=== PATIENT | female | born 1995 | race Caucasian/White ===

== ENCOUNTER 2017-04-29 10:44 | Emergency (ER) | payer OTHER, MEDICAID ==
[2017-04-29 10:55] VITALS: BP 107/79
[2017-04-29] MEDS ORDERED: DEXAMETHASONE 10 MG/ML VIAL PO STA (11:10)
--- NOTE | 2017-04-29 11:15 | ED Physician Documentation ---
PD HPI UPPER EXT INJURY - Stated complaint Stated Complaint: RT SHOULDER PX - Chief complaint Chief Complaint: Ext Problem - History obtained from History obtained from: Patient, Family - History of Present Illness Location: Left, Shoulder Type of injury: Twist Where injury occurred: Home Timing - onset: Last night Timing - duration: Hours Timing - details: Abrupt onset, Still present Improved by: Rest, Immobilization Worsened by: Moving, Palpating Associated symptoms: No: Weakness, Numbness, Tingling, Swelling, Discolored Contributing factors: No: Anticoagulated Similar symptoms before: No diagnosis Recently seen: Not recently seen - Additonal information Additional information: 21-year-old female was on the commode and put her left arm behind her to wipe and she felt a pop in her shoulder and has severe pain when she is trying to maneuver the shoulder. She points to the anterior deltoid is a source of her pain.She has injured this shoulder one time previously and has had a problem every time she puts her arm behind her back. Review of Systems Respiratory: denies: Cough GI: denies: Vomiting Musculoskeletal: reports: Joint pain. denies: Neck pain, Back pain, Extremity swelling, Joint swelling Neurologic: denies: Generalized weakness, Focal weakness, Numbness PD PAST MEDICAL HISTORY - Past Medical History Cardiovascular: None Respiratory: Sleep apnea Neuro: Headache/migraine Endocrine/Autoimmune: None GI: None : Kidney stones HEENT: None Psych: Depression, Anxiety Musculoskeletal: Scoliosis Derm: None - Past Surgical History Past Surgical History: Yes - Present Medications Home Medications: Ambulatory Orders Medication Instructions Recorded Confirmed Amitriptyline HCl 25 mg PO DAILY 03/22/14 04/29/17 Fexofenadine HCl [Vidhya Allergy] 180 mg PO DAILY 03/22/14 04/29/17 Fluoxetine HCl [Prozac] 20 mg PO DAILY 03/22/14 04/29/17 Multivitamin [Multivitamins] 1 tab PO DAILY 03/22/14 04/29/17 Potassium Citrate [Urocit-K] 15 meq PO BID 03/22/14 04/29/17 Chlorthalidone 1 tab PO DAILY 06/11/15 04/29/17 - Allergies Allergies/Adverse Reactions: Allergies Allergy/AdvReac Type Severity Reaction Status Date / Time Sulfa (Sulfonamide Allergy Unknown Verified 04/29/17 10:54 Antibiotics) - Social History Does the pt smoke?: No Smoking Status: Never smoker Does the pt drink ETOH?: No Does the pt have substance abuse?: No - Immunizations Immunizations are current?: Yes - POLST Patient has POLST: No PD ED PE NORMAL - Vitals Vital signs reviewed: Yes (tachy) - General General: No acute distress, Well developed/nourished - HEENT HEENT: Atraumatic, PERRL, EOMI - Neck Neck: Supple, no meningeal sign - Respiratory Respiratory: No respiratory distress - Derm Derm: Normal color, Warm and dry, No rash - Extremities Extremities: No deformity, No edema, Other (There is anterior tenderness to the deltoid. The patient is able to hold her arm in aduction and has pain with far ranges of motion. The distal N/V is intact and the elbow and wrist are without findings ) - Neuro Neuro: No motor deficit, No sensory deficit - Psych Psych: Normal mood, Normal affect Results - Vitals Vitals: Vital Signs - 24 hr 04/29/17 10:52 Temperature 36.1 C L Heart Rate 108 H Respiratory 18 Rate Blood Pressure 107/79 O2 Saturation 98 Oxygen O2 Source Room air - Rads (name of study) left shoulder Radiology: Prelim report reviewed (Impression: Normal shoulder radiography.), EMP read indepedently, See rad report PD MEDICAL DECISION MAKING - ED course Complexity details: reviewed results, re-evaluated patient, considered differential, d/w patient, d/w family ED course: 21-year-old female with a left shoulder injury appears to have sprained her shoulder and has anterior deltoid pain. She is placed into a sling and given a dose of dexamethasone and we will have her follow-up with orthopedics. Departure - Departure Disposition: 01 Home, Self Care Clinical Impression: Shoulder sprain Qualifiers: Encounter type: initial encounter Shoulder sprain type: unspecified sprain Laterality: left Qualified Code(s): S43.402A - Unspecified sprain of left shoulder joint, initial encounter Condition: Stable Instructions: ED Sprain Shoulder Follow-Up: AMBER BULLARD [Primary Care Provider] - [facility] [Provider Group] Discharge Date/Time: 04/29/17 11:50
[2017-04-29] MEDS ORDERED: DEXAMETHASONE 10 MG/ML VIAL ONE (11:20)
--- NOTE | 2017-04-29 12:10 | XRAY Preliminary Report ---
Exam: XR SHOULDER 3 VIEW LT IMPRESSION: Normal shoulder radiography. [facility] SITE ID: [id number]
--- NOTE | 2017-04-29 12:12 | XRAY Report ---
EXAM: LEFT SHOULDER RADIOGRAPHY EXAM DATE: 04/29/2017 11:32 AM. CLINICAL HISTORY: Pain with motion. COMPARISON: None. TECHNIQUE: 3 views. FINDINGS: Bones: Normal. No fracture or bone lesion. Joints: The glenohumeral and acromioclavicular joints are normal. Soft tissues: The visualized hemithorax is unremarkable. No soft tissue swelling. IMPRESSION: Normal shoulder radiography. [facility] Referring Provider Line: [phone] SITE ID: [id number]
== END 2017-04-29 11:50 | disposition home or self-care (01) ==
LOC: ED 10:44
DX: S43.402A Unspecified sprain of left shoulder joint, initial encounter (principal); X50.1XXA Overexertion from prolonged static or awkward postures, initial encounter; Y93.89 Activity, other specified; Y92.009 Unspecified place in unspecified non-institutional (private) residence as the place of occurrence of the external cause
CPT/HCPCS: 99283

== ENCOUNTER 2017-09-28 18:24 | Emergency (ER) | payer OTHER, MEDICAID ==
[2017-09-28] MEDS ORDERED: LIDOCAINE 1%-EPI 1:100000 20 ML MDV ONE (20:03)
[2017-09-28] MEDS ORDERED: BACITRACIN OINT TOP STA (20:04)
--- NOTE | 2017-09-28 20:06 | ED Physician Documentation ---
PD HPI HEAD INJURY - Stated complaint Stated Complaint: CHIN INJ - Chief complaint Chief Complaint: Laceration - History obtained from History obtained from: Patient - History of Present Illness Mechanism of head injury: Fell (trip over the laundry basket and chin into ground. No LOC or head injury otherwise.) Review of Systems Constitutional: denies: Fever, Chills Ears: denies: Loss of hearing, Ear pain Nose: denies: Rhinorrhea / runny nose, Congestion Throat: denies: Sore throat PD PAST MEDICAL HISTORY - Past Medical History Past Medical History: Yes Cardiovascular: None Respiratory: Sleep apnea Neuro: Headache/migraine Endocrine/Autoimmune: None GI: None : Kidney stones HEENT: None Psych: Depression, Anxiety Musculoskeletal: Scoliosis Derm: None - Past Surgical History Past Surgical History: Yes - Present Medications Home Medications: Ambulatory Orders Medication Instructions Recorded Confirmed Amitriptyline HCl 25 mg PO DAILY 03/22/14 04/29/17 Fluoxetine HCl [Prozac] 20 mg PO DAILY 03/22/14 04/29/17 Multivitamin [Multivitamins] 1 tab PO DAILY 03/22/14 04/29/17 Potassium Citrate [Urocit-K] 15 meq PO BID 03/22/14 04/29/17 Fexofenadine/Pseudoephedrine 09/28/17 [Vidhya-D 12 Hour Tablet] Isotretinoin [Amnesteem] BID 09/28/17 Norgestimate-Ethinyl Estradiol 1 DAILY 09/28/17 [Trinessa Lo Tablet] ZOLMitriptan [Zolmitriptan] 09/28/17 hydroCHLOROthiazide 1 DAILY 09/28/17 [Hydrochlorothiazide] - Allergies Allergies/Adverse Reactions: Allergies Allergy/AdvReac Type Severity Reaction Status Date / Time Sulfa (Sulfonamide Allergy Unknown Verified 09/28/17 18:33 Antibiotics) - Social History Does the pt smoke?: No Smoking Status: Never smoker Does the pt drink ETOH?: No Does the pt have substance abuse?: No - Immunizations Immunizations are current?: Yes - POLST Patient has POLST: No PD ED PE NORMAL - Vitals Vital signs reviewed: Yes - General General: Alert and oriented X 3, No acute distress - HEENT HEENT: PERRL, EOMI, Other (Teeth ok, 1cm submnetal lac. No TTP of facial bones.) - Neck Neck: Supple, no meningeal sign, No bony TTP - Neuro Neuro: Alert and oriented X 3 Eye Opening: Spontaneous Motor: Obeys Commands Verbal: Oriented GCS Score: 15 - Psych Psych: Normal mood, Normal affect Results - Vitals Vitals: Vital Signs - 24 hr 09/28/17 18:30 Temperature 36.1 C L Heart Rate 109 H Respiratory 18 Rate Blood Pressure 107/69 O2 Saturation 96 Oxygen O2 Source Room air Procedures - Laceration (location) Chin Length in cm: 1 Wound type: Linear Anesthesia: Lidocaine 1% with epi Wound Preparation: Betadine, Irrigated copiously NS Skin layer closure: Nylon, Interrupted, Size #-0 - enter number (5-0), Sutures - enter # (5) Other: Tetanus UTD Complexity: Simple Departure - Departure Disposition: 01 Home, Self Care Clinical Impression: Laceration Condition: Good Record reviewed to determine appropriate education?: Yes Instructions: ED Laceration Facial Sutr Tape Comments: Come back for any signs of infection which would include: Redness, swelling, drainage, increased pain, or fevers. Follow-up with your physician in 6-7 days for suture removal.
[2017-09-28 20:14] VITALS: BP 104/63
== END 2017-09-28 20:16 | disposition home or self-care (01) ==
LOC: ED 18:24
DX: S01.81XA Laceration without foreign body of other part of head, initial encounter (principal); W18.09XA Striking against other object with subsequent fall, initial encounter
CPT/HCPCS: 12011; 99283

== ENCOUNTER 2017-10-19 14:37 | Outpatient (CLI) | payer OTHER, MEDICAID ==
--- NOTE | 2017-10-19 16:05 | Ultrasound Report ---
RETROPERITONEAL ULTRASOUND: 10/19/2017 HISTORY: Flank pain. COMPARISON: 11/07/2011 ultrasound. TECHNIQUE: Real-time scanning by the avionics systems repairer with saved static images reviewed. FINDINGS: Right kidney 9.3 x 3.7 x 5.2 cm. Normal echotexture without stones, hydronephrosis, or mass. Left kidney 9.5 x 4.5 x 4.4 cm. Mid pole stone measuring 4 x 5 x 7 mm. No evidence of obstruction, mass or perinephric collection. Bilateral ureteral jets are present. Prevoid bladder volume 552 mL with postvoid residual 6 mL. IMPRESSION: NEGATIVE RIGHT KIDNEY. A 4 X 5 X 7 MM NONOBSTRUCTING MID POLE LEFT RENAL STONE. OTHERWISE, NEGATIVE LEFT KIDNEY. TD: 10/19/2017 16:04
== END 2017-10-19 14:38 | disposition home or self-care (01) ==
LOC: DI 14:37
PROVIDERS: ATTEND Physician Assistant
DX: N20.0 Calculus of kidney (principal)
CPT/HCPCS: 76770

== ENCOUNTER 2018-10-04 05:49 | Emergency (ER) | payer MEDICAID, OTHER ==
[2018-10-04] MEDS ORDERED: IBUPROFEN 800 MG TABLET PO STA (06:01)
--- NOTE | 2018-10-04 06:17 | ED Physician Documentation ---
History of Present Illness - Stated complaint Stated Complaint: SORE THROAT - Chief complaint Chief Complaint: Heent - History obtained from History obtained from: Patient, Family - History of Present Illness Timing: How many days ago (2-3) Pain level max: 6 Pain level now: 5 - Additonal information Additional information: 22-year-old female presents to the emergency department with fevers, body aches, cough, nasal congestion and a sore throat for the past 2-3 days. Has not been taking anything for this at home. Feels worse today. Nothing makes it better. Worse with swallowing and movement Review of Systems Ten Systems: 10 systems reviewed and negative Constitutional: reports: Fever, Chills Nose: reports: Rhinorrhea / runny nose, Congestion Throat: reports: Sore throat Respiratory: reports: Cough GI: denies: Abdominal Pain, Nausea, Vomiting, Diarrhea : denies: Dysuria, Frequency, Hesitancy, Now EGA Skin: denies: Rash Musculoskeletal: denies: Neck pain, Back pain Neurologic: denies: Confused, Altered mental status, Headache PD PAST MEDICAL HISTORY - Past Medical History Cardiovascular: None Respiratory: Sleep apnea Endocrine/Autoimmune: None GI: None : Kidney stones HEENT: None Psych: Depression, Anxiety Musculoskeletal: Scoliosis Derm: None - Past Surgical History Past Surgical History: Yes - Present Medications Home Medications: Ambulatory Orders Medication Instructions Recorded Confirmed Amitriptyline HCl 25 mg PO DAILY 03/22/14 04/29/17 Fluoxetine HCl [Prozac] 20 mg PO DAILY 03/22/14 04/29/17 Multivitamin [Multivitamins] 1 tab PO DAILY 03/22/14 04/29/17 Potassium Citrate [Urocit-K] 15 meq PO BID 03/22/14 04/29/17 Fexofenadine/Pseudoephedrine 09/28/17 [Vidhya-D 12 Hour Tablet] Isotretinoin [Amnesteem] BID 09/28/17 Norgestimate-Ethinyl Estradiol 1 DAILY 09/28/17 [Trinessa Lo Tablet] ZOLMitriptan [Zolmitriptan] 09/28/17 hydroCHLOROthiazide 1 DAILY 09/28/17 [Hydrochlorothiazide] Benzonatate [Tessalon Perle] 100 - 200 mg PO TID PRN #30 capsule 10/04/18 Cetirizine HCl/Pseudoephedrine 1 each PO BID PRN #30 tab.er.12h 10/04/18 [Zyrtec-D Tablet] Ibuprofen [Motrin] 800 mg PO Q8H PRN #30 tablet 10/04/18 - Allergies Allergies/Adverse Reactions: Allergies Allergy/AdvReac Type Severity Reaction Status Date / Time Sulfa (Sulfonamide Allergy Unknown Verified 09/28/17 18:33 Antibiotics) - Social History Does the pt smoke?: No Smoking Status: Never smoker Does the pt drink ETOH?: No Does the pt have substance abuse?: No - Immunizations Immunizations are current?: Yes - POLST Patient has POLST: No PD ED PE NORMAL - Vitals Vital signs reviewed: Yes - General General: Alert and oriented X 3, No acute distress, Well developed/nourished - HEENT HEENT: PERRL, Ears normal, Moist mucous membranes, Other (Mild posterior oropharyngeal erythema, no tonsillar exudates. Uvula midline. Normal phonation. No trismus) - Neck Neck: Supple, no meningeal sign, No adenopathy - Cardiac Cardiac: RRR, Strong equal pulses - Respiratory Respiratory: No respiratory distress, Clear bilaterally - Abdomen Abdomen: Soft, Non tender, Non distended - Derm Derm: Warm and dry, No rash - Extremities Extremities: No edema - Neuro Neuro: Alert and oriented X 3 - Psych Psych: Normal mood, Normal affect Results - Vitals Vitals: Vital Signs - 24 hr 10/04/18 10/04/18 10/04/18 05:55 06:29 06:47 Temperature 36.5 C Heart Rate 126 H 94 94 Respiratory 16 17 17 Rate Blood Pressure 120/90 H 114/70 113/72 O2 Saturation 96 99 98 Oxygen O2 Source Room air - Labs Labs: Laboratory Tests 10/04/18 10/04/18 06:05 06:05 Influenza A (Rapid) POSITIVE H Influenza B (Rapid) Negative Group A Strep Rapid Negative PD MEDICAL DECISION MAKING - ED course Complexity details: reviewed results, re-evaluated patient, considered differential, d/w patient, d/w family ED course: 22-year-old female with influenza A. Out of the window for Tamiflu. She is well-appearing, nontoxic. We will continue supportive care and follow-up with her doctor. No evidence of sepsis. No evidence of pneumonia. No hypoxia. Patient and family counseled regarding signs and symptoms for which I believe and urgent re-evaluation would be necessary. Patient with good understanding of and agreement to plan and is comfortable going home at this time This document was made in part using voice recognition software. While efforts are made to proofread this document, sound alike and grammatical errors may occur. Departure - Departure Disposition: Home, Self Care Clinical Impression: Influenza A Condition: Good Instructions: ED Flu Follow-Up: AMBER BULLARD [Primary Care Provider] - Within 1 week Prescriptions: Benzonatate [Tessalon Perle] 100 - 200 mg PO TID PRN #30 capsule PRN Reason: Cough Cetirizine HCl/Pseudoephedrine [Zyrtec-D Tablet] 1 each PO BID PRN #30 tab.er.12h PRN Reason: nasal congestion Ibuprofen [Motrin] 800 mg PO Q8H PRN #30 tablet PRN Reason: PAIN &/OR FEVER Comments: Drink plenty of fluids and rest. You do have the flu. You tested positive for influenza A today. The fevers will last 3-4 days, usually the cough last a week or more. Discharge Date/Time: 10/04/18 06:51
[2018-10-04 06:48] VITALS: BP 113/72
== END 2018-10-04 06:51 | disposition home or self-care (01) ==
LOC: ED 05:49
DX: J10.1 Influenza due to other identified influenza virus with other respiratory manifestations (principal)
CPT/HCPCS: 87070; 87275; 87276; 87430; 99283; A9270

== ENCOUNTER 2019-08-06 10:13 | Outpatient (CLI) | payer MEDICAID ==
[2019-08-06 11:58] LABS: BASOPHILS % (AUTO) 0.5 %; LYMPHOCYTES # (AUTO) 1.7 10^3/uL (1.5-3.5); MEAN CORPUSCULAR HEMOGLOBIN 30.8 pg (27.0-31.0); MEAN CORPUSCULAR HGB CONC 34.6 g/dL (32.0-36.0); MEAN CORPUSCULAR VOLUME 89.2 fL (81.0-99.0); MEAN PLATELET VOLUME 10.5 fL (7.9-10.8); MONOCYTES # (AUTO) 0.3 10^3/uL (0.0-1.0); NEUTROPHILS # (AUTO) 1.9 10^3/uL (1.5-6.6); NEUTROPHILS % (AUTO) 48.3 %; PLT - PLATELET COUNT 243 10^3/uL (130-450); RED BLOOD COUNT 4.54 10^6/uL (4.20-5.40); RED CELL DISTRIBUTION WIDTH 12.1 % (12.0-15.0)
[2019-08-06 12:19] LABS: ALBUMIN 4.4 g/dL (3.2-5.5); ALBUMIN/GLOBULIN RATIO 1.5 (1.0-2.2); ALKALINE PHOSPHATASE 45 IU/L (42-121); ALT ALANINE AMINOTRANSFERASE < 10 IU/L (10-60); AST ASPARTATE AMINOTRANSFERASE 15 IU/L (10-42); BILIRUBIN,TOTAL 0.7 mg/dL (0.2-1.0); BUN - BLOOD UREA NITROGEN 8 mg/dL (6-20); CALCIUM 9.3 mg/dL (8.5-10.3); CARBON DIOXIDE - CO2 24 mmol/L (21-32); CHLORIDE 105 mmol/L (101-111); CHOL/HDL RATIO 3.5 (<4.4); CHOLESTEROL 163 mg/dL; CREATININE 0.8 mg/dL (0.4-1.0); GFR - MDRD 87 (>89); GLUCOSE 91 mg/dL (70-100); HDL CHOLESTEROL 46 mg/dL; LDL CHOLESTEROL,CALCULATED 104 mg/dL; LDL/HDL RATIO 2.3 (<4.4); SODIUM 140 mmol/L (135-145); TOTAL PROTEIN 7.4 g/dL (6.7-8.2); VLDL CHOLESTEROL 13 mg/dL
== END 2019-08-06 23:59 | disposition home or self-care (01) ==
LOC: LAB.N 10:13
PROVIDERS: ATTEND Nurse Practitioner Gerontology
DX: Z13.9 Encounter for screening, unspecified (principal)
CPT/HCPCS: 36415; 80050; 80061; 83721

== ENCOUNTER 2020-01-20 11:26 | Outpatient (CLI) | payer MEDICAID ==
--- NOTE | 2020-01-20 12:11 | SLEEP CARE CONSULTATION ---
Information from patient questionnaire entered by Qian Parekh. I have reviewed and concur with the information entered by Qian Parekh. This document represents the service I personally performed and the decisions made by me, Karyn Ramirez MD, [facility]. History of Present Illness Service Date and Time: 01/20/2020 1126 Reason for Visit: New patient Chief Complaint: reports: Unrefreshed sleep, Excessive daytime sleepiness, Fatigue, Other (sleep apnea) Duration of Symptoms: 10+ years Usual bedtime: 2200 Time it takes to fall asleep: 5-10 minutes Snores at night: Yes (softly) Observed to quit breathing while asleep: Yes Number of times waking at night: 5 Reasons for waking at night: reports: Other (Noise) Toss, Turn, or Twitch while sleeping: Yes Recalls having dreams: Yes Usually gets out of bed at: [id number] Feels refreshed in the morning: No Morning headache: Yes Sleepy or fatigued during the day: Yes Ever fallen asleep while driving: No Takes day naps: Yes Dreams during day naps: Yes Prior sleep studies: Yes Year and Where: 2008 [facility], [place], [facility] Additional HPI information: The patient was diagnosed with "[id number]" CINDY 11 years ago at the [facility] in [place]. She was prescribed a CPAP which she tried to use for 2 years but unable because the mask kept falling off. The longest she could use it was 2 hours. The patient went in to have the sleep study because she was sick that year. She did not snore. Tonsillectomy was not offered because her tonsils were small. Presently, she complains of feeling tired but not sleepy. Although she sleeps 10 - 12 hours a night. She takes several antidepressants. Subjective Initial [place] Sleepiness Scale score: 4 Past Medical History Past Medical History: reports: Anxiety, Depression, Other (Kidney stones, migraines, unknown reason twitching/passing out, scoliosis) Social History The patient's occupation is not employed. Patient is Single and lives in [place]. Have you smoked in the past 12 months: No Alcohol use: No Caffeine use: No Family History Family history of sleep disordered breathing: Yes Family Hx Sleep Apnea: Sibling: Snoring Allergies and Home Medications Drug allergies reviewed: Yes (sulfa) Home medication list reviewed: Yes (fluoxetine, claritin, chlorthalidone, buspirone, amitriptyline, potassium) Review of Systems Weight gain over past 5 years: 10 Cardiovascular: denies: high blood pressure, palpitations, chest pain, irregular heart rate or pulse, leg or foot swelling, have to sleep sitting up, other Respiratory: denies: shortness of breath, wheeze, sputum production, chronic cough, other Gastrointestinal: reports: nausea, vomitting, other (kidney stones) Urinary: denies: incontinence, frequency, urgency, impotence, other Neurological: reports: headaches, fainting or unconsciousness Psychiatric: reports: anxiety, depression, other (PTSD) Ear/Nose/Throat: reports: wisdom teeth removed Endocrine: reports: sluggishness, unexplained weakness Immunologic: reports: sneezing Physical Exam Vital signs obtained and entered by: Physical exam was not performed due to the COVID-19 pandemic. Height: 5 ft 7 in Weight: 137 lb Body Mass Index: 21.4 BMI Classification: Healthy weight Impression and Plan IMPRESSION: 1. Obstructive Sleep Apnea-Hypopnea Syndrome, as previously diagnosed but untreated. Interestingly, the patient does not have much of any symptoms--loud and irregular snoring, observed cessation of breath while asleep, frequent awakenings during the night, and daytime hypersomnolence ([place] Sleepiness Scale score is 4). I recommend repeating the in-laboratory polysomnography to see if she still has significant sleep disordered breathing. Multiple sleep latency test (MSLT) will not be ordered because she is on several antidepressant medications which can suppress REM sleep. Plan: 1. Schedule an in-laboratory polysomnography 2. Return in 1 to 2 weeks after the study to discuss results and initiate therapy Visit Type: In Office Time Spent with Patient (minutes): 15 Provider Statement: I spent 100% of the Face to Face Visit with the patient with greater than 50% spent counseling the patient and coordination of care.
== END 2020-01-20 11:27 | disposition home or self-care (01) ==
LOC: SC 11:26
PROVIDERS: ATTEND Internal Medicine Pulmonary Disease
DX: G47.33 Obstructive sleep apnea (adult) (pediatric) (principal)
CPT/HCPCS: 99203; 99212

== ENCOUNTER 2020-02-15 20:18 | Outpatient (CLI) | payer MEDICAID | END 2020-02-15 20:19 | disposition home or self-care (01) | LOC: SC 20:18 | PROVIDERS: ATTEND Internal Medicine Pulmonary Disease | DX: G47.10 Hypersomnia, unspecified (principal) | CPT/HCPCS: 95810 ==

== ENCOUNTER 2020-03-02 08:35 | Outpatient (CLI) | payer MEDICAID ==
--- NOTE | 2020-03-02 09:13 | SLEEP CARE CONSULTATION ---
Information from patient questionnaire entered by Anabel Adkins. I have reviewed and concur with the information entered by Anabel Adkins. This document represents the service I personally performed and the decisions made by , Mari Colón ARNP. History of Present Illness Service Date and Time: 03/02/202035 Initial [place] Sleepiness Scale score: 4 (in 2019) Current [place] Sleepiness Scale score: 7 Additional HPI information: TIFF KING returns with mother for follow up and results of the recently performed polysomnography. She came in for evaluation because when she was 9 years old she was diagnosed with CINDY but was unable to tolerate wearing a CPAP mask for therapy. She always took it off within two hours of going to sleep. She stopped using it altogether but decided recently to seek reevaluation due to c ontinuing issues of needing 10-12 hours of sleep, feeling tired/fatigued during the day and since around 13 years old has been having issues with depression for which she is on medications. The patient was informed of the following findings: Her study showed no significant sleep disordered breathing with an average AHI of 0.1. I explained the pathophysiology behind obstructive sleep apnea. Patient does not have sleep apnea and was advised how weight gain could increase the risk of developing sleep apnea in the future. Patient counseled not drink alcohol less than 4 hours before bedtime as it can increase snoring and apnea. Patient was cautioned about risks of drowsy driving until sleepiness symptoms resolve. Sleep Study - Results Type of Sleep Study: Polysomnography Polysomnography/Home Sleep Study results: IMPRESSION: The quality of the study is good. The patient had normal sleep efficiency. The sleep architecture was abnormal for sleep fragmentation and reduced amount of time spent in REM sleep. Respiratory monitoring showed no significant sleep disordered breathing (AHI = 0.1) or hypoxia (edna oxygen saturation of 94%). The patient slept mostly supine (supine AHI = 0.2; non-supine = 0.00). No audible snore. There was no significant periodic leg movement of sleep. Cardiac rhythm was normal sinus rhythm without significant arrhythmia. No abnormal behavior (parasomnia) observed during the night. CONCLUSIONS and RECOMMENDATIONS: 1. This is a normal in-laboratory polysomnography. Clinical correlation advised. Allergies and Home Medications Drug allergies reviewed: Yes (sulfa) Home medication list reviewed: Yes (no changes) Review of Systems Review of systems same as previous: Yes (no changes) Physical Exam Heart Rate: 91 O2 Saturation: 98 Height: 5 ft 7 in Weight: 140 lb 3.2 oz Body Mass Index: 21.9 BMI Classification: Healthy weight Impression and Plan 1. Fatigue, nonspecific. Patient has history of CINDY but her study showed no significant significant sleep disordered breathing. Patient advised that there are other causes of fatigue including low blood iron, thyroid issues and endocrine issues. She also states recently she has woken up in cold sweats. She also has a history of depression which could be contributing to her fatigue. She was advised to follow up with her PCP for further evaluation of causes of her fatigue. We also discussed in detail to keep a sleep diary to evaluate her sleeping pattern. She should try to evaluate her sleep hygiene and keep to a regular getting up in morning and going to bed at night schedule. She may try shortening time she sleeps from 30-60 minutes until she is closer to 9 hours of sleep a night consistent which should help her feel more rested overall. She should eliminate electronics from the bedroom, avoid exercising 4-6 hours prior to sleep and avoid alcohol before bedtime. * Follow up with PCP for further evaluation of her fatigue. * Avoid alcohol consumption near bedtime * The patient is cautioned about driving until sleepiness is completely resolved. * Return as needed for follow up if her symptoms worsen or change. Visit Type: In Office Time Spent with Patient (minutes): 22 Provider Statement: I spent 100% of the Face to Face Visit with the patient with greater than 50% spent counseling the patient and coordination of care.
== END 2020-03-02 08:36 | disposition home or self-care (01) ==
LOC: SC 08:35
PROVIDERS: ATTEND Nurse Practitioner Family
DX: R53.83 Other fatigue (principal)
CPT/HCPCS: 99212; 99213

== ENCOUNTER 2020-07-29 10:49 | Outpatient (CLI) | payer MEDICAID ==
[2020-07-29 18:37] LABS: ALBUMIN 4.6 g/dL (3.2-5.5); ALBUMIN/GLOBULIN RATIO 1.7 (1.0-2.2); BILIRUBIN,TOTAL 0.7 mg/dL (0.2-1.0); CALCIUM 9.3 mg/dL (8.5-10.3); CREATININE 0.8 mg/dL (0.4-1.0); TOTAL PROTEIN 7.3 g/dL (6.7-8.2)
== END 2020-07-29 23:59 | disposition home or self-care (01) ==
LOC: LAB.WCP 10:49
PROVIDERS: ATTEND Family Medicine
DX: N20.0 Calculus of kidney (principal)
CPT/HCPCS: 36415; 80053

== ENCOUNTER 2021-05-05 08:31 | Outpatient (CLI) | payer MEDICAID ==
[2021-05-05 12:48] LABS: BILIRUBIN,URINE NEGATIVE (NEGATIVE); GLUCOSE, URINE (UA) NEGATIVE (NEGATIVE); KETONES,URINE (UA) NEGATIVE (NEGATIVE); LEUKOCYTE ESTERASE, URINE NEGATIVE (NEGATIVE); NITRITE,URINE NEGATIVE (NEGATIVE); OCCULT BLOOD,URINE SMALL (NEGATIVE); PH,URINE 7.5 PH (5.0-7.5); PROTEIN,URINE NEGATIVE (NEGATIVE); UROBILINOGEN,URINE 0.2 (NORMAL) E.U./dL (NORMAL)
[2021-05-05 12:49] LABS: ALBUMIN 4.7 g/dL (3.2-5.5); ALBUMIN/GLOBULIN RATIO 1.6 (1.0-2.2); BILIRUBIN,TOTAL 0.6 mg/dL (0.2-1.0); CALCIUM 9.7 mg/dL (8.5-10.3); POTASSIUM 3.4 mmol/L (3.5-5.0); TOTAL PROTEIN 7.6 g/dL (6.7-8.2)
[2021-05-05 13:02] LABS: CLARITY,URINE CLEAR (CLEAR)
[2021-05-05 13:03] LABS: AMORPHOUS SEDIMENT,UR Few /LPF; BACTERIA,URINE None Seen /HPF (None Seen); BASOPHILS % (AUTO) 0.7 %; EOSINOPHILS # (AUTO) 0.1 10^3/uL (0.0-0.7); EOSINOPHILS % (AUTO) 1.5 %; HCT - HEMATOCRIT 42.5 % (37.0-47.0); HGB - HEMOGLOBIN 14.5 g/dL (12.0-16.0); LYMPHOCYTES # (AUTO) 2.3 10^3/uL (1.5-3.5); LYMPHOCYTES % (AUTO) 42.1 %; MEAN CORPUSCULAR HEMOGLOBIN 31.4 pg (27.0-31.0); MEAN CORPUSCULAR HGB CONC 34.1 g/dL (32.0-36.0); MEAN PLATELET VOLUME 10.2 fL (7.9-10.8); MONOCYTES # (AUTO) 0.5 10^3/uL (0.0-1.0); MONOCYTES % (AUTO) 8.3 %; NEUTROPHILS # (AUTO) 2.6 10^3/uL (1.5-6.6); NEUTROPHILS % (AUTO) 47.2 %; PLT - PLATELET COUNT 295 10^3/uL (130-450); RBC,URINE 0-5 /HPF (0-5); RED BLOOD COUNT 4.62 10^6/uL (4.20-5.40); RED CELL DISTRIBUTION WIDTH 12.5 % (12.0-15.0); SQUAMOUS EPITHELIAL CELL,UR RARE Squamous (<= Few); WBC,URINE 0-3 /HPF (0-5); WHITE BLOOD COUNT 5.4 x10^3/uL (4.8-10.8)
== END 2021-05-05 23:59 | disposition home or self-care (01) ==
LOC: LAB.WCP 08:31
PROVIDERS: ATTEND Family Medicine
DX: N20.0 Calculus of kidney (principal)
CPT/HCPCS: 36415; 80053; 81001; 85025

== ENCOUNTER 2021-07-21 06:10 | Day surgery (SDC) | payer MEDICAID ==
[2021-07-21] MEDS ORDERED: ACETAMINOPHEN 500 MG TABLET PO ONE (06:23)
[2021-07-21] MEDS ORDERED: CELECOXIB 100 MG CAPSULE PO ONE (06:24)
[2021-07-21] MEDS ORDERED: GABAPENTIN 400 MG CAPSULE ONE (06:24)
--- NOTE | 2021-07-21 06:53 | HISTORY & PHYSICAL EXAMINATION ---
HPI - History of Present Illness HPI Comment/Other: HPI: Patient presents today for pre-op visit BTL scheduled 07/21/2021. Patient states doing well no questions ...................................................................Anika Alfonso Carbider July 19, 2021 12:57 PM Patient is a 25 yo G0 here for preop assessment for bilateral salpingectomy Patient was last seen 05/23/21 for sterilization consult. There have been no changes in health hx since time of prior exam. She has undergone a 30 day waiting period per [facility] requirements and reamins committed to her decision. Prior hx below: Patient reports that she has never wanted to be and does not desire c hildren. She has been wanting a sterilization procedure since her early 20s. She has helped raise her siblings and felt that was adequate parenting exposure for her psychological needs. She is not sexually active and has not been to date. She has not hx of STIs or abnormal pap smears. She has monthly cycles. Last pap 08/22/20 She has had recurrent kidney stones dating back into childhood and has had multiple cystoscopies with stents/laser treatment. On one occasion at age 12, she had been accused of being at the time of her prior procedure. When she denied ever having been , CPS was involved to determine whether she had been abused and forced to terminate ir had an SAB, etc. It was very traumatic. It turns out that it was a typo in the [facility] lab system. She has some PTSD from this experience. She had another event that was traumatizing as well. She is on SSI for a combination of reasons including anxiety/depression/PTSD/back problems/and propensity towards fainting. Allergies: SULFA (Critical) Medications: chlorthalidone 25 mg tablet (chlorthalidone) Take 1 tablet by mouth every morning loratadine 10 mg tablet (loratadine) Take 1 tablet by mouth once a day potassium citrate 10 mEq (1,080 mg) tablet extended release (potassium citrate) Take 1 tablet by mouth three times a day Thermotabs 287-180-15 mg tablet (sod.chlorid-potassium chloride) Take 1 tablet by mouth once a day amitriptyline 25 mg tablet (amitriptyline) Take 1 tablet by mouth every night buspirone 5 mg tablet (buspirone) Take 1 tablet by mouth twice a day fluoxetine 40 mg capsule (fluoxetine) Take 1 capsule by mouth once a day tizanidine 2 mg tablet (tizanidine) Take 1 tablet by mouth three times a day as needed as needed for muscle spasm pain Problems: Preoperative examination (ICD-V72.84) (QTT88-B39.818) Muscle spasm of neck (ICD-728.85) (RWW24-H95.838) Sterilization counseling (ICD-V25.09) (JQR67-S84.09) Pap smear (ICD-V76.2) (PPU69-P60.4) Health screening (ICD-V70.0) (LMY26-T23.9) Migraines (ICD-346.90) (XIC00-M49.909) Depression (ICD-311) (TEV08-R88.9) Sleep apnea (ICD-780.57) (MYF09-O96.30) Recurrent kidney stones (ICD-592.0) (NWP09-A94.0) Vital Signs: Patient Profile: 25 Years Old Female Height: 68 inches Weight: 131.4 pounds BMI: 20.05 Temp: 98.5 degrees F oral BP sittin / 76 Cuff size: regular Vitals Entered By: Anika Alfonso Carbider (July 19, 2021 12:55 PM) Meds Reviewed: Done Allergies Reviewed: Done Past Medical History: Depression Migraines Kidney stones Sleep Apnea 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 Physical Constitutional: GEN: NAD HEAD: NCAT EYES: No scleral icterus or conjunctival injection CV: RRR RESP: CTAB, normal effort ABD: S&NT/ND PSYCH: appropriate affect NEURO: alert and oriented, normal gait and coordination EXT: WWP Impression & Recommendations: Problem # 1: Preoperative examination (ICD-V72.84) (CEM11-J58.818) Preop examination for laparoscopic bilateral salpingectomy We discussed risks, benefits, alternatives. Reviewed all surgical procedures carry risks of bleeding, infection, and damage nearby tissue and organs. Discussed the risk of infection with blood transfusion is relatively low. Risk of HIV is 1 in 2 million nationwide, risk of hepatitis is 1/million nationwide. Reviewed for possibility of transfusion reaction and possible management with medications. She is provided consent for blood transfusion. Reviewed lower risk procedure for infection and antibiotics are not indicated for prophylaxis. We discussed the anatomical proximity of other organs near the ovary including but not limited to the bladder, ureters, and bowel. As surgeons, we used a number of surgical to techniques to avoid damaging any of these other organs. We reviewed, that despite her best efforts, sometimes injury occurs to these organs. We discussed that this may cause complicated post operative course. We also discussed the possibility of converting to an open procedure, although risk is low She is aware that this is an irreversible procedure and will preclude future in the absence of IVF. She provided consent to all of the above. We will proceed to surgery with a scheduled operating room date. Orders: PRE OP -[id number] (CPT-46269) PRE OP -[id number] (CPT-55931) Height: 68 (06/15/2021 10:20:04 AM) Weight: 131.4 Is pt sexualy active? no Control Plan(per PISQ): Female sterilization Last Pap: Normal (09/01/2020 6:38:07 AM) /PSH - Past Medical History Cardiovascular: positive: None Respiratory: positive: Sleep apnea Endocrine/Autoimmune: positive: None GI: positive: None : positive: Kidney stones HEENT: positive: None Psych: positive: Depression, Anxiety, Panic attacks, Post traumatic stress disorder Musculoskeletal: positive: Scoliosis Derm: positive: None MRSA Hx?: No Social & Family Hx - Social History Does the pt smoke?: No Smoking Status: Never smoker Does the pt drink ETOH?: No Does the pt have substance abuse?: No - POLST Patient has POLST: No Meds/Allgy - Home Medications Home Medications: Ambulatory Orders Medication Instructions Recorded Confirmed Fluoxetine HCl [Prozac] 40 mg PO DAILY 03/22/14 07/21/21 Multivitamin [Multivitamins] 1 tab PO DAILY 03/22/14 07/21/21 Amitriptyline [Elavil] 25 mg PO QPM 07/19/21 07/21/21 busPIRone [Buspar] 5 mg PO BID 07/19/21 07/21/21 - Allergies Allergies/Adverse Reactions: Allergies Allergy/AdvReac Type Severity Reaction Status Date / Time Sulfa (Sulfonamide Allergy Severe Rash Verified 07/19/21 14:20 Antibiotics) Exam - Vital Signs Vital Signs: Vital Signs x48h Temp Pulse Resp BP Pulse Ox 07/21/21 06:29 97.7 F 83 16 108/74 98
[2021-07-21] MEDS ORDERED: fentaNYL 100 MCG/2 ML VIAL ONE (07:03)
[2021-07-21] MEDS ORDERED: MIDAZOLAM 2 MG/2 ML VIAL ONE (07:03)
[2021-07-21] MEDS ORDERED: PROPOFOL 200 MG/20 ML VIAL IVP ONE (07:04)
[2021-07-21] MEDS ORDERED: LIDOCAINE-MPF 2% 5 ML VIAL ONE (07:04)
[2021-07-21] MEDS ORDERED: ROCURONIUM 50 MG/5 ML VIAL ONE (07:06)
[2021-07-21] MEDS ORDERED: TRIAMCIN/MOXIFLOX OPHTHALMIC 0.6 ML VIAL IO ONE (07:14)
[2021-07-21] MEDS ORDERED: BSS/LIDOCAINE/EPINEPHRINE 1 ML SYRINGE ONE (07:15)
[2021-07-21] MEDS ORDERED: EPINEPHrine 1 MG/ML AMP ONE (07:15)
[2021-07-21] MEDS ORDERED: TIMOLOL 0.5% OPHTH DROPS ONE (07:15)
[2021-07-21] MEDS ORDERED: BRIMONIDINE 0.2% OPHTH DROPS 5 ML ONE (07:15)
--- NOTE | 2021-07-21 07:26 | ANESTHESIA ---
Pre-Anesthesia VS, & Labs - Diagnosis desires sterilization - Procedure salpingectomy Vital Signs: Temp Pulse Resp BP Pulse Ox 36.5 C 83 16 108/74 98 07/21/21 06:29 07/21/21 06:29 07/21/21 06:29 07/21/21 06:29 07/21/21 06:29 Height: 5 ft 7 in Weight (kg): 59 kg Body Mass Index: 20.3 BMI Classification: Healthy weight - NPO >8 hours - Is Patient ?: No - Lab Results Current Lab Results: Laboratory Tests 07/21/21 06:56: POC Whole Bld Glucose 93 Home Medications and Allergies Home Medications: Ambulatory Orders Amitriptyline [Elavil] 25 mg PO QPM 07/19/21 busPIRone [Buspar] 5 mg PO BID 07/19/21 Fluoxetine HCl [Prozac] 40 mg PO DAILY 03/22/14 Multivitamin [Multivitamins] 1 tab PO DAILY 03/22/14 Amitriptyline [Elavil] 25 mg PO QPM 07/19/21 busPIRone [Buspar] 5 mg PO BID 07/19/21 Allergies/Adverse Reactions: Allergies Allergy/AdvReac Type Severity Reaction Status Date / Time Sulfa (Sulfonamide Allergy Severe Rash Verified 07/19/21 14:20 Antibiotics) Anes History & Medical History - Anesthetic History Anesthesia Complications: reports: No previous complications Family history of Anesthesia Complications: Denies Family history of Malignant Hyperthermia: Denies - Medical History Cardiovascular: reports: None Pulmonary: reports: Sleep apnea Gastrointestinal: reports: None Urinary: reports: Kidney stones Musculoskeletal: reports: Scoliosis Endocrine/Autoimmune: reports: None Blood Disorders: reports: None Skin: reports: None Smoking Status: Never smoker Exam General: Alert, Oriented x3, Cooperative Dental: WNL Mouth Openin Fingerbreadth Neck Mobility: Normal Mallampati classification: I Respiratory: Lungs clear Cardiovascular: Regular rate Plan Anesthesia Type: General Consent for Procedure(s) Verified and Reviewed: Yes Code Status: Attempt Resuscitation ASA classification: 2-Mild systemic disease Is this case an emergency?: No
[2021-07-21] MEDS ORDERED: LIDOCAINE MPF 2%-EPI 1:200000 20 ML VIAL ONE (07:28)
[2021-07-21] MEDS ORDERED: BUPIVACAINE 0.5% PF 10 ML VIAL ONE (07:28)
[2021-07-21 07:39] LABS: HCG UR QUAL NEGATIVE
[2021-07-21] MEDS ORDERED: ONDANSETRON 4 MG/2 ML VIAL ONE (08:12)
[2021-07-21] MEDS ORDERED: ePHEDrine 50 MG/ML VIAL IVP ONE (08:23)
[2021-07-21] MEDS ORDERED: SODIUM CHLORIDE 0.9% 10 ML VIAL IVP ONE (08:23)
[2021-07-21] MEDS ORDERED: LIDOCAINE 2%-EPI 1:100000 20 ML MDV SUBQ ONE (08:32)
[2021-07-21] MEDS ORDERED: BUPIVACAINE 0.5% PF 10 ML VIAL SUBQ ONE (08:32)
[2021-07-21] MEDS ORDERED: GLYCOPYRROLATE 1 MG/5 ML VIAL ONE (08:40)
[2021-07-21] MEDS ORDERED: NEOSTIGMINE 1 MG/1 ML 10 ML MDV ONE (08:40)
[2021-07-21] MEDS ORDERED: oxyCODONE 5 MG TABLET PO PRN (09:05)
--- NOTE | 2021-07-21 09:08 | OPERATIVE REPORT ---
Operative Report - General Procedure Date: 07/21/21 Planned Procedure: Bilateral salpingectomy Pre-Op Diagnosis: Desires sterilization Procedure Performed: Laparoscopic bilateral salpingectomy Post Op Diagnosis: Same - Procedure Note Primary Surgeon: Archana Waters MD Secondary Surgeon: Mahendra Thompsno MD Anesthesia Provider: Marco Antonio Medina. [employer] DEVELOPER Pathology: Bilateral fallopian tubes IV Fluids (mL): 800 Estimated Blood Loss (mL): 25 Urine Output (mL): 50 Indications: Patient is a 25 yo G0 who desires sterilization. Has undergone 30 day waiting period and continues to desire sterilization. Presents for bilateral salpingectomy. Findings: Normal appearing uterus, fallopian tubes and ovaries. Normal survey of upper abdomen including normal liver edge. Complications: none - Other Other Information/Narrative: Risks benefits and alternatives of the procedure were reviewed. Consent was again confirmed. Patient was brought to the operating room and underwent general anesthesia. She was placed in dorsal lithotomy position with legs resting in yellowfin stirrups. SCDs were in place and activated. Instruments were then removed from the vagina. She was then prepped and draped in the usual sterile fashion. Surgical timeout was performed. Bimanual exam was performed. Sterile speculum was placed. The [place] uterine manipulator was placed. A paracervical block using 20 cc of 2% lidocaine and 0.25% bupivicaine with epinephrine was injected at 4:00 and 8:00. The base of the umbilicus was anesthetized with intradermal injection of 2% lidocaine and 0.25% bupivicaine with epinephrine. A 5 mm skin incision was made with a scalpel. A 5 mm blunt trocar was inserted under direct visualization u [facility]. Once the port was confirmed to be placed intraperitoneally, the abdomen was insufflated to 15 mmHg with CO2 gas Exploration of the abdomen and pelvis was confirmed that no injury was sustained with placement of the trocar. Two additional 5 mm ports were placed in the right and left lower quadrants, taking care to avoid the epigastric arteries, while under direct visualization v ia laparoscopic guidance. The abdomen was explored with the laparoscope, with findings as noted. The left fallopian tube was grasped and elevated at the fimbriated end. The underlying mesosalpinx was sealed and resected to the insertion point on the uterine cornua using the Ligasure device. The tube was then sealed and transected at the insertion point at the cornua. The tube was removed from the pelvis through the lateral port. The procedure was repeated on the right side. Good hemostasis was noted. The abdomen was partially desufflated. Pedicles were observed under decreased pressure and good hemostasis was again confirmed. Abdomen was then completely desufflated. All instruments were removed from the abdomen. Skin was closed with interrupted subcuticular stitches using 4-0 Monocryl. Dermabond was applied over the suture sites. The uterine manipulator was removed from the uterus. Again, good hemostasis was noted. The final sponge needle and instrument counts were correct at completion of the procedure patient was awakened taken to the postanesthesia care unit in stable condition. Dr. Thompson assisted with suturing and retraction.
[2021-07-21] MEDS ORDERED: LACTATED RINGERS 1,000 ML IV ONE (09:11)
[2021-07-21] MEDS ORDERED: ONDANSETRON 4 MG/2 ML VIAL IVP PRN (09:22)
[2021-07-21] MEDS ORDERED: MORPHINE 2 MG/ML CARPUJECT IVP PRN (09:22)
[2021-07-21] MEDS ORDERED: ePHEDrine 50 MG/ML VIAL IVP PRN (09:22)
[2021-07-21] MEDS ORDERED: NALOXONE 0.4 MG/ML VIAL IVP PRN (09:22)
[2021-07-21] MEDS ORDERED: HYDROmorphone 0.5 MG/0.5 ML SYRINGE IVP PRN (09:22)
[2021-07-21] MEDS ORDERED: ATROPINE ABBOJECT 1 MG/10 ML SYRINGE IVP PRN (09:22)
[2021-07-21] MEDS ORDERED: fentaNYL 100 MCG/2 ML VIAL IVP PRN (09:22)
[2021-07-21] MEDS ORDERED: LACTATED RINGERS 1,000 ML IV SCH (10:00)
[2021-07-21 10:29] VITALS: BP 115/76
--- NOTE | 2021-07-21 13:05 | ANESTHESIA POST OP EVALUATION ---
Anesthesia Post Eval - Post Anesthesia Eval Vitals: Last Vital Signs Temp 36.9 C 07/21/21 10:15 Pulse 98 07/21/21 10:15 Resp 16 07/21/21 10:15 BP 115/76 07/21/21 10:15 Pulse Ox 100 07/21/21 10:15 CV Function Including HR & BP: Stable Pain Control: Satisfactory Nausea & Vomiting: Negative Mental Status: Baseline Respiratory Status: Airway Patent Hydration Status: Satisfactory Anesthesia Complications: None
== END 2021-07-21 06:11 | disposition home or self-care (01) ==
LOC: SDS 06:10
PROVIDERS: ATTEND Obstetrics & Gynecology
PROC: 0UT74ZZ Resection of Bilateral Fallopian Tubes, Percutaneous Endoscopic Approach (ICD-10-PCS; principal; 2021-07-21 07:30)
DX: Z30.2 Encounter for sterilization (principal); G47.30 Sleep apnea, unspecified; F41.9 Anxiety disorder, unspecified; F32.A Depression, unspecified; F43.10 Post-traumatic stress disorder, unspecified
CPT/HCPCS: 58661; 81025; A9270; J7120

== ENCOUNTER 2021-12-06 08:02 | Outpatient (CLI) | payer MEDICAID ==
[2021-12-06 11:48] LABS: BASOPHILS % (AUTO) 0.4 %; EOSINOPHILS % (AUTO) 0.5 %; HCT - HEMATOCRIT 40.3 % (37.0-47.0); HGB - HEMOGLOBIN 13.8 g/dL (12.0-16.0); LYMPHOCYTES # (AUTO) 0.9 10^3/uL (1.5-3.5); LYMPHOCYTES % (AUTO) 16.2 %; MEAN CORPUSCULAR HEMOGLOBIN 31.2 pg (27.0-31.0); MEAN CORPUSCULAR HGB CONC 34.2 g/dL (32.0-36.0); MEAN CORPUSCULAR VOLUME 91.2 fL (81.0-99.0); MEAN PLATELET VOLUME 10.3 fL (7.9-10.8); MONOCYTES # (AUTO) 0.4 10^3/uL (0.0-1.0); MONOCYTES % (AUTO) 7.5 %; NEUTROPHILS # (AUTO) 4.1 10^3/uL (1.5-6.6); NEUTROPHILS % (AUTO) 75.2 %; PLT - PLATELET COUNT 231 10^3/uL (130-450); RED BLOOD COUNT 4.42 10^6/uL (4.20-5.40); RED CELL DISTRIBUTION WIDTH 12.4 % (12.0-15.0); WHITE BLOOD COUNT 5.5 x10^3/uL (4.8-10.8)
[2021-12-06 12:16] LABS: ALBUMIN 4.6 g/dL (3.2-5.5); ALBUMIN/GLOBULIN RATIO 1.5 (1.0-2.2); ALKALINE PHOSPHATASE 45 IU/L (42-121); ALT ALANINE AMINOTRANSFERASE 11 IU/L (10-60); AST ASPARTATE AMINOTRANSFERASE 18 IU/L (10-42); BILIRUBIN,TOTAL 1.1 mg/dL (0.2-1.0); BUN - BLOOD UREA NITROGEN 12 mg/dL (6-20); CALCIUM 9.3 mg/dL (8.5-10.3); CARBON DIOXIDE - CO2 27 mmol/L (21-32); CHLORIDE 98 mmol/L (101-111); CHOL/HDL RATIO 3.5 (<4.4); CHOLESTEROL 221 mg/dL; GFR - MDRD 67 (>89); GLUCOSE 94 mg/dL (70-100); HDL CHOLESTEROL 64 mg/dL; LDL CHOLESTEROL,CALCULATED 139 mg/dL; LDL/HDL RATIO 2.2 (<4.4); POTASSIUM 3.2 mmol/L (3.5-5.0); SODIUM 137 mmol/L (135-145); TOTAL PROTEIN 7.6 g/dL (6.7-8.2); TRIGLYCERIDES 88 mg/dL; VLDL CHOLESTEROL 18 mg/dL
[2021-12-06 12:28] LABS: THYROID STIMULATING HORMONE 1.96 uIU/mL (0.34-5.60)
== END 2021-12-06 08:03 | disposition home or self-care (01) ==
LOC: LAB.N 08:02
PROVIDERS: ATTEND Physician Assistant
DX: Z13.9 Encounter for screening, unspecified (principal); F32.A Depression, unspecified
CPT/HCPCS: 36415; 80050; 80061; 83721

== ENCOUNTER 2023-01-10 11:51 | Emergency (ER) | payer MEDICAID ==
[2023-01-10] MEDS ORDERED: SODIUM CHLORIDE 0.9% 1,000 ML IV STA (12:09)
--- NOTE | 2023-01-10 12:11 | ED Physician Documentation ---
History of Present Illness - Stated complaint Stated Complaint: POUNDING HEART - Chief complaint Chief Complaint: Cardiac - Additonal information Additional information: 27-year-old female presents emergency department for evaluation of a pounding sensation in her chest and concerned that she has" a thumping" heart. She states that for the last 2 days she has noticed that her heart will begin to pound very hard in her chest. It is often followed by a pause. There has been no syncope. No chest pain or shortness of air. No nausea or vomiting. Denies possibility of as she underwent tubal ligation in July 2021. She states that for the last week she has not taken her salt tabs which she uses for control of her kidney stones. However she has not missed any of her other medications such as her fluoxetine. Denies alcohol, caffeine or cannabis use. Review of Systems Constitutional: reports: Reviewed and negative Cardiac: reports: Palpitations. denies: Chest pain / pressure Respiratory: reports: Reviewed and negative GI: reports: Reviewed and negative : reports: Reviewed and negative Skin: reports: Reviewed and negative Musculoskeletal: reports: Reviewed and negative Neurologic: reports: Reviewed and negative PD PAST MEDICAL HISTORY - Past Medical History Cardiovascular: None Respiratory: Sleep apnea Endocrine/Autoimmune: None GI: None : Kidney stones HEENT: None Psych: Depression, Anxiety, Panic attacks, Post traumatic stress disorder Musculoskeletal: Scoliosis Derm: None - Past Surgical History Past Surgical History: Yes - Present Medications Home Medications: Ambulatory Orders Medication Instructions Recorded Confirmed Fluoxetine HCl [Prozac] 40 mg PO DAILY 03/22/14 07/21/21 Multivitamin [Multivitamins] 1 tab PO DAILY 03/22/14 07/21/21 Amitriptyline [Elavil] 25 mg PO QPM 07/19/21 07/21/21 busPIRone [Buspar] 5 mg PO BID 07/19/21 07/21/21 Acetaminophen [Acetaminophen Extra 1,000 mg PO Q8H PRN #60 tablet 07/21/21 Strength] Docusate Sodium 100Mg Capsule 100 - 200 mg PO BID PRN #60 cap 07/21/21 [Colace 100Mg Capsule] Ibuprofen [Motrin] 600 mg PO Q6H PRN #60 tab 07/21/21 oxyCODONE [Roxicodone] 2.5 - 5 mg PO Q4H PRN #12 tablet 07/21/21 - Allergies Allergies/Adverse Reactions: Allergies Allergy/AdvReac Type Severity Reaction Status Date / Time Sulfa (Sulfonamide Allergy Severe Rash Verified 01/10/23 12:01 Antibiotics) - Social History Does the pt smoke?: No Smoking Status: Never smoker Does the pt drink ETOH?: No Does the pt have substance abuse?: No - Immunizations Immunizations are current?: Yes - POLST Patient has POLST: No PD ED PE NORMAL - General General: Alert and oriented X 3, No acute distress, Well developed/nourished - HEENT HEENT: Atraumatic, Moist mucous membranes - Neck Neck: Supple, no meningeal sign, No adenopathy - Cardiac Cardiac: RRR, No murmur, No gallop - Respiratory Respiratory: No respiratory distress, Clear bilaterally - Abdomen Abdomen: Normal bowel sounds, Soft - Back Back: No CVA TTP - Derm Derm: Normal color, Warm and dry - Extremities Extremities: No deformity, No tenderness to palpate, Normal ROM s pain - Neuro Neuro: Alert and oriented X 3 Eye Opening: Spontaneous Motor: Obeys Commands Verbal: Oriented GCS Score: 15 Results - Vitals Vitals: Vital Signs - 24 hr 01/10/23 01/10/23 01/10/23 11:57 12:15 13:27 Temperature 35.9 C L Heart Rate 116 H Heart Rate [ 90 86 Sitting] Heart Rate [ 132 H 84 Standing] Heart Rate [ 95 90 Supine] Respiratory 20 Rate Blood Pressure 125/77 Blood Pressure 120/75 105/63 [Sitting] Blood Pressure 97/69 108/62 [Standing] Blood Pressure 122/68 108/65 [Supine] O2 Saturation 96 Oxygen O2 Source Room air - EKG (time done) 1158 EKG releavant findings:: EKG personally interpreted by author of this note. Relevant findings are: Rate: Rate (enter#) (96) Rhythm: NSR [place]: Normal Intervals: Normal [place] QRS: Normal Ischemia: Normal ST segments Compare to prior EKG: Old EKG unavailable Computer interpretation: Agree with computer - Labs Labs: Laboratory Tests 01/10/23 01/10/23 01/10/23 12:11 12:11 12:11 WBC 5.1 RBC 4.56 Hgb 14.1 Hct 39.9 MCV 87.5 MCH 30.9 MCHC 35.3 RDW 12.2 Plt Count 238 MPV 9.5 Neut # (Auto) 3.0 Lymph # (Auto) 1.7 [place] # (Auto) 0.4 Eos # (Auto) 0.1 Baso # (Auto) 0.0 Absolute Nucleated RBC 0.00 Nucleated RBC % 0.0 Sodium 138 Potassium 3.0 L Chloride 103 Carbon Dioxide 26 Anion Gap 9.0 BUN 10 Creatinine 0.9 Estimated GFR (MDRD) 74 L Glucose 100 Calcium 9.2 Total Bilirubin 0.7 AST 17 ALT 13 Alkaline Phosphatase 42 Troponin I High Sens < 2.3 L Total Protein 7.1 Albumin 4.1 Globulin 3.0 Albumin/Globulin Ratio 1.4 Lipase 29 TSH Free T4 Serum HCG, Qual 01/10/23 01/10/23 12:11 12:11 WBC RBC Hgb Hct MCV MCH MCHC RDW Plt Count MPV Neut # (Auto) Lymph # (Auto) [place] # (Auto) Eos # (Auto) Baso # (Auto) Absolute Nucleated RBC Nucleated RBC % Sodium Potassium Chloride Carbon Dioxide Anion Gap BUN Creatinine Estimated GFR (MDRD) Glucose Calcium Total Bilirubin AST ALT Alkaline Phosphatase Troponin I High Sens Total Protein Albumin Globulin Albumin/Globulin Ratio Lipase TSH 3.35 Free T4 0.97 Serum HCG, Qual NEGATIVE - Rads (name of study) cxr Relevant Findings:: Final report received (No acute cardiopulmonary process) PD Medical Decision Making - ED course Complexity details: reviewed results, re-evaluated patient, considered differential, d/w patient ED course: 27-year-old female male presents to the emergency department for evaluation of palpitations that she has noticed for the last 2 days. She has a pounding sensation in her heart and feels like it may skip a beat. She did have some mild sensation of being lightheaded. She recently ran out of her potassium citrate which she takes for alkalinization of the urine due to a history of kidney stones. On presentation the emergency department she is alert and well-appearing. Her initial vital signs in triage showed resting tachycardia. She was noted to have orthostasis. I did give the patient a liter of IV fluids and on recheck she no longer had orthostatic tachycardia. Her EKG was nonischemic. I did obtain CBC, electrolytes troponin and TSH. The only abnormality that I am able to make note of is that of a hypokalemia with potassium of 3. She was given 50 of potassium bicarb here in the emergency department. Clinically history is not consistent with ACS. She is by Wells criteria negative for concern of DVT. Chest x-ray was without findings suggesting pneumonia, pneumothorax or pleural effusion. I discussed with patient her orthostasis. I making the recommendation that she follow closely with her PCP as she may benefit from a Holter monitor for her palpitations. The usual emergent return precautions for worsening symptoms was discussed Departure - Departure Disposition: 01 Home, Self Care Clinical Impression: Palpitations with regular cardiac rhythm, Hypokalemia, Orthostasis Instructions: ED Hypotension Orthostatic Comments: You are seen today in the emergency department because for the last several days you have been having a sensation of a pounding heart and feel as though your heart may be skipping a beat. While here in the emergency department on the conveyor monitor we have not noted any abnormal rhythm or abnormal beats. We did obtain CBC, electrolytes and troponin as well as thyroid. The only abnormality in your labs was that of a low potassium for which you were given some supplemental potassium here in the emergency department. However when we initially checked your vital signs we we did note that your blood pressure stayed the same with sitting laying and standing but your heart rate increased dramatically. I did give you a liter of IV fluids and on reevaluation this has corrected. I do recommend that you discuss this ED visit with your primary care doctor as you may benefit from outpatient referral for a Holter monitor. Your primary care provider can also make consideration of the possibility of an echocardiogram which would look at the structural function of your heart to make sure that there are not any valves that are causing your sensation of palpitations. Reasons to return to the emergency department would include sudden severe chest pain, severe shortness of air or any fainting episodes. You can continue to take your usual medications as already prescribed.
[2023-01-10 12:17] LABS: BASOPHILS % (AUTO) 0.6 %; EOSINOPHILS # (AUTO) 0.1 10^3/uL (0.0-0.7); HCT - HEMATOCRIT 39.9 % (37.0-47.0); HGB - HEMOGLOBIN 14.1 g/dL (12.0-16.0); LYMPHOCYTES # (AUTO) 1.7 10^3/uL (1.5-3.5); LYMPHOCYTES % (AUTO) 32.5 %; MEAN CORPUSCULAR HEMOGLOBIN 30.9 pg (27.0-31.0); MEAN CORPUSCULAR HGB CONC 35.3 g/dL (32.0-36.0); MEAN CORPUSCULAR VOLUME 87.5 fL (81.0-99.0); MEAN PLATELET VOLUME 9.5 fL (7.9-10.8); MONOCYTES # (AUTO) 0.4 10^3/uL (0.0-1.0); MONOCYTES % (AUTO) 7.7 %; PLT - PLATELET COUNT 238 10^3/uL (130-450); RED BLOOD COUNT 4.56 10^6/uL (4.20-5.40); RED CELL DISTRIBUTION WIDTH 12.2 % (12.0-15.0); WHITE BLOOD COUNT 5.1 x10^3/uL (4.8-10.8)
[2023-01-10 12:34] LABS: ALBUMIN 4.1 g/dL (3.2-5.5); ALBUMIN/GLOBULIN RATIO 1.4 (1.0-2.2); BILIRUBIN,TOTAL 0.7 mg/dL (0.2-1.0); CALCIUM 9.2 mg/dL (8.5-10.3); CREATININE 0.9 mg/dL (0.4-1.0); TOTAL PROTEIN 7.1 g/dL (6.7-8.2)
[2023-01-10] MEDS ORDERED: POTASSIUM BICARB 25 MEQ TABLET PO STA (12:40)
--- NOTE | 2023-01-10 12:42 | XRAY Report ---
PROCEDURE: Chest 1 View X-Ray INDICATIONS: Chest pain TECHNIQUE: One view of the chest was acquired. COMPARISON: None. FINDINGS: Surgical changes and devices: None. Lungs and pleura: No pleural effusions or pneumothorax. Lungs are clear. Mediastinum: Mediastinal contours appear normal. Heart size is normal. Bones and chest wall: No suspicious bony lesions. Overlying soft tissues appear unremarkable. IMPRESSION: No acute cardiopulmonary process. Reviewed by: Loco Petersen on 01/10/2023 12:40 PM PDT Approved by: Loco Petersen on 01/10/2023 12:40 PM PDT Station ID: [id number]
[2023-01-10 12:53] LABS: HCG,QUALITATIVE BLOOD NEGATIVE
[2023-01-10 13:15] LABS: THYROID STIMULATING HORMONE 3.35 uIU/mL (0.34-5.60)
[2023-01-10 13:18] LABS: FREE T4 (FREE THYROXINE) 0.97 ng/dL (0.58-1.64)
[2023-01-10 13:58] VITALS: BP 110/69
== END 2023-01-10 14:00 | disposition home or self-care (01) ==
LOC: ED 11:51
DX: R00.2 Palpitations (principal); E87.6 Hypokalemia; Z79.899 Other long term (current) drug therapy
CPT/HCPCS: 36415; 71045; 80053; 83690; 84439; 84443; 84484; 84703; 85025; 93005; 96360; 99284; A9270

== ENCOUNTER 2023-02-07 14:18 | Outpatient (CLI) | payer MEDICAID ==
[2023-02-07 17:56] LABS: CALCIUM 9.9 mg/dL (8.5-10.3); CREATININE 1.1 mg/dL (0.6-1.3); POTASSIUM 3.4 mmol/L (3.5-4.5)
== END 2023-02-07 14:19 | disposition home or self-care (01) ==
LOC: LAB.N 14:18
PROVIDERS: ATTEND Physician Assistant
DX: E87.6 Hypokalemia (principal)
CPT/HCPCS: 36415; 80048

== ENCOUNTER 2023-02-07 14:48 | Outpatient (CLI) | payer MEDICAID | END 2023-02-07 14:49 | disposition home or self-care (01) | LOC: MAC.MOP 14:48 | PROVIDERS: ATTEND Physician Assistant | DX: R00.2 Palpitations (principal) | CPT/HCPCS: 93246 ==